=== PATIENT | male | born 1955 | race Caucasian/White ===

== ENCOUNTER 2022-06-30 02:34 | Observation (INO) | payer MEDICARE ==
[2022-06-30] MEDS ORDERED: DUONEB 0.5-3 MG/3 ml Neb IH ONE ×2 (02:42→02:52)
--- NOTE | 2022-06-30 02:51 | ERPHSYRPT ---
- History of Present Illness Time Seen by Provider: 06/30/22 02:46 Source: patient Exam Limitations: no limitations Physician History: Patient is a 66-year-old male with a history of COPD current smoker presents to our ED for evaluation of shortness of breath, hypoxia and respiratory distress.. Shortness of breath started this morning at approximately 1 AM. Upon EMS a rrival patient was wheezing. Patient was hypoxic. Patient received a DuoNeb neb and Solu-Medrol. Wheezing improved. Upon arrival to our ED patient O2 was 96% on facemask. No associated chest pain or shortness of breath. No nausea vomiting or diaphoresis. Symptoms are constant. Symptoms are moderate in intensity. No specific worsening improving factors. Patient normally does not require oxygen at home. Patient otherwise feels well. He voices no other complaints or concerns at this time. Portions of this note were created with voice recognition technology. There may be grammatical, spelling, punctuation or sound alike errors Timing/Duration: today Activities at Onset: none Severity of Dyspnea-Max: moderate Severity of Dyspnea-Current: mild Possible Cause: unknown cause Modifying Factors: Improves With: activity Associated Symptoms: No ankle swelling Allergies/Adverse Reactions: No Known Drug Allergies Allergy (Unverified 06/30/22 02:36) Home Medications: Ipratropium/Albuterol Sulfate [Combivent Respimat Common Canister] 1 puff IH DAILY 06/30/22 [History] Tiotropium Br/Olodaterol HCl [Stiolto Respimat Inhal Bryant] 4 gm IH DAILY [History] - Review of Systems Constitutional: No Symptoms, No Fever, No Chills Eyes: No Symptoms Ears, Nose, & Throat: No Symptoms Respiratory: No Symptoms, No Cough, No Dyspnea Cardiac: No Symptoms, No Chest Pain, No Edema, No Syncope Abdominal/Gastrointestinal: No Symptoms, No Abdominal Pain, No Nausea, No Vomiting, No Diarrhea Genitourinary Symptoms: No Symptoms, No Dysuria Musculoskeletal: No Symptoms, No Back Pain, No Neck Pain Skin: No Symptoms, No Rash Neurological: No Symptoms, No Dizziness, No Focal Weakness, No Sensory Changes Psychological: No Symptoms Endocrine: No Symptoms Hematologic/Lymphatic: No Symptoms Immunological/Allergic: No Symptoms All Other Systems: Reviewed and Negative - Nursing Vital Signs Nursing Vital Signs: Initial Vital Signs Temperature 97.7 F 06/30/22 02:39 Pulse Rate 102 H 06/30/22 02:39 Respiratory Rate 28 H 06/30/22 02:39 Blood Pressure 136/91 06/30/22 02:39 O2 Sat by Pulse Oximetry 99 06/30/22 02:39 Pain Scale Pain Intensity 0 - Physical Exam General Appearance: no apparent distress, alert Eye Exam: PERRL/EOMI, eyes nml inspection Ears, Nose, Throat Exam: hearing grossly normal, normal ENT inspection, normal pharynx Neck Exam: normal inspection, supple Respiratory Exam: diminished breath sounds, wheezing Cardiovascular/Chest Exam: normal heart sounds, regular rate/rhythm Abdominal/Gastrointestinal Exam: soft, No tenderness, No distention, No mass Extremity Exam: non-tender, normal range of motion, normal inspection, no calf tenderness, no pedal edema Neurologic Exam: alert, oriented x 3, cooperative, 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 Intact bony thorax.) Ordered Tests: Active Orders 24 hr Category Date Time Status Beautician Apprentice STAT Care 06/30/22 02:43 Active EKG-ER Only STAT Care 06/30/22 02:42 Active IV Insertion STAT Care 06/30/22 02:42 Active Pulse Oximetry (ED) STAT Care 06/30/22 02:42 Active CHEST 1 VIEW (PORTABLE) Stat Exams 06/30/22 02:43 Taken BLOOD CULTURE Stat Lab 06/30/22 03:09 Received CBC W DIFF Stat Lab 06/30/22 03:09 Completed CMP Stat Lab 06/30/22 03:09 Completed NT PRO BNPII Stat Lab 06/30/22 03:09 Completed UA W/RFX UR CULTURE Stat Lab 06/30/22 02:43 Ordered Respiratory Therapy Assessment DAILY RT 06/30/22 02:54 Active Medication Summary Discontinued Medications Generic Name Dose Route Start Last Admin Trade Name Freq PRN Reason Stop Dose Admin Albuterol/Ipratropium 3 ml 06/30/22 02:42 06/30/22 02:55 Ipratropium/Albuterol Sulfate 3 Ml Ampul.Neb IH 06/30/22 02:43 3 ml STAT ONE Administration Albuterol/Ipratropium Confirm 06/30/22 02:52 Ipratropium/Albuterol Sulfate 3 Ml Ampul.Neb Administered 06/30/22 02:53 Dose 3 ml IH .STK-MED ONE Ceftriaxone Sodium/Dextrose 2 g in 50 mls @ 100 mls/hr 06/30/22 03:14 06/30/22 04:09 Rocephin 2 Gm-D5w 50ml Bag IV 06/30/22 03:43 Infused STAT STA Infusion Azithromycin / Sodium Chloride 250 mls @ 125 mls/hr 06/30/22 03:14 IV 06/30/22 05:13 STAT ONE Ceftriaxone Sodium/Dextrose Confirm 06/30/22 03:28 Rocephin 2 Gm-D5w 50ml Bag Administered 06/30/22 03:29 Dose 2 g in 50 mls @ ud IV .STK-MED ONE Azithromycin 500 mg in 250 mls @ 250 mls/hr 06/30/22 03:49 06/30/22 04:07 Zithromax 500 Mg/ 250 Ml Nacl Premix IV 06/30/22 04:48 250 mls/hr STAT STA 250 mls/hr Administration Azithromycin Confirm 06/30/22 03:53 Zithromax 500 Mg/ 250 Ml Nacl Premix Administered 06/30/22 03:54 Dose 500 mg in 250 mls @ ud IV .STK-MED ONE Lab/Rad Data: Laboratory Result Diagrams 06/30/22 03:09 06/30/22 03:09 Laboratory Results 06/30/22 06/30/22 06/30/22 Range/Units 03:09 03:09 03:09 WBC (4.0-10.5) x10^3/uL RBC (4.1-5.6) x10^6/uL Hgb (12.5-18.0) g/dL Hct (42-50) % MCV (78-100) fL MCH (26-32) pg MCHC (32-36) g/dL RDW (11.5-14.0) % Plt Count (150-450) x10^3/uL MPV (7.5-11.0) fL Gran % (36.0-66.0) % Immature Gran % (Auto) (0.00-0.4) % Nucleat RBC Rel Count (0.00-0.1) % Eos # (Auto) (0-0.5) x10^3/uL Immature Gran # (Auto) (0.00-0.03) x10^3u/L Absolute Lymphs (auto) (1.0-4.6) x10^3/uL Absolute Monos (auto) (0.0-1.3) x10^3/uL Absolute Nucleated RBC (0.00-0.01) x10^3u/L Lymphocytes % (24.0-44.0) % Monocytes % (0.0-12.0) % Eosinophils % (0.00-5.0) % Basophils % (0.0-0.4) % Absolute Granulocytes (1.4-6.9) x10^3/uL Basophils # (0-0.4) x10^3/uL Sodium 142 (137-145) mmol/L Potassium 4.0 (3.5-5.1) mmol/L Chloride 103 (98-107) mmol/L Carbon Dioxide 33 H (22-30) mmol/L Anion Gap 9.7 (5-15) MEQ/L BUN 12 (9-20) mg/dL Creatinine 0.96 (0.66-1.25) mg/dL Estimated GFR > 60.0 ML/MIN Glucose 123 H (74-106) mg/dL Calcium 8.8 (8.4-10.2) mg/dL Total Bilirubin 0.60 (0.2-1.3) mg/dL AST 36 (17-59) U/L ALT 26 (0-50) U/L Alkaline Phosphatase 77 (38-126) U/L NT-Pro-B Natriuret Pep 139 (<300) pg/mL Serum Total Protein 6.5 (6.3-8.2) g/dL Albumin 3.9 (3.5-5.0) g/dL Influenza Type A Ag NEGATIVE (NEGATIVE) Influenza Type B Ag NEGATIVE (NEGATIVE) RSV (PCR) NEGATIVE (NEGATIVE) SARS-CoV-2 (PCR) NEGATIVE (NEGATIVE) 06/30/22 Range/Units 03:09 WBC 6.9 (4.0-10.5) x10^3/uL RBC 4.31 (4.1-5.6) x10^6/uL Hgb 13.6 (12.5-18.0) g/dL Hct 42.9 (42-50) % MCV 99.5 (78-100) fL MCH 31.6 (26-32) pg MCHC 31.7 L (32-36) g/dL RDW 12.3 (11.5-14.0) % Plt Count 216 (150-450) x10^3/uL MPV 9.5 (7.5-11.0) fL Gran % 52.3 (36.0-66.0) % Immature Gran % (Auto) 0.3 (0.00-0.4) % Nucleat RBC Rel Count 0.0 (0.00-0.1) % Eos # (Auto) 0.74 H (0-0.5) x10^3/uL Immature Gran # (Auto) 0.02 (0.00-0.03) x10^3u/L Absolute Lymphs (auto) 2.02 (1.0-4.6) x10^3/uL Absolute Monos (auto) 0.48 (0.0-1.3) x10^3/uL Absolute Nucleated RBC 0.00 (0.00-0.01) x10^3u/L Lymphocytes % 29.1 (24.0-44.0) % Monocytes % 6.9 (0.0-12.0) % Eosinophils % 10.7 H (0.00-5.0) % Basophils % 0.7 (0.0-0.4) % Absolute Granulocytes 3.63 (1.4-6.9) x10^3/uL Basophils # 0.05 (0-0.4) x10^3/uL Sodium (137-145) mmol/L Potassium (3.5-5.1) mmol/L Chloride (98-107) mmol/L Carbon Dioxide (22-30) mmol/L Anion Gap (5-15) MEQ/L BUN (9-20) mg/dL Creatinine (0.66-1.25) mg/dL Estimated GFR ML/MIN Glucose (74-106) mg/dL Calcium (8.4-10.2) mg/dL Total Bilirubin (0.2-1.3) mg/dL AST (17-59) U/L ALT (0-50) U/L Alkaline Phosphatase (38-126) U/L NT-Pro-B Natriuret Pep (<300) pg/mL Serum Total Protein (6.3-8.2) g/dL Albumin (3.5-5.0) g/dL Influenza Type A Ag (NEGATIVE) Influenza Type B Ag (NEGATIVE) RSV (PCR) (NEGATIVE) SARS-CoV-2 (PCR) (NEGATIVE) - Progress Progress: improved Air Movement: good Progress Note: Patient is a 66-year-old male with a history of COPD. Patient presents to our ED via EMS for evaluation of hypoxia and wheezing. Patient is experiencing a COPD exacerbation. Patient normally receives his care at the [facility]. However patient request to stay at [facility] for further evaluation and treatment. Patient received Solu-Medrol in route per EMS. Therefore he did not receive Fátima u-Medrol in our ED. Upon arrival to our ED patient was wearing a facemask. Oxygen was 96%. Patient was in mild respiratory distress. Patient significantly improved after administration of oxygen DuoNeb and steroids. Upon arrival to our ED patient had an EKG. EKG showed sinus tachycardia at a r ate of 100. Chest x-ray consistent with history of COPD. No infiltrate or consolidation observed. Blood cultures obtained. CBC essentially nonremarkable. CMP negative. COVID-negative. BNP negative. Urinalysis negative. Patient received azithromycin and Rocephin in our ED. An additional DuoNeb received. Patient downgraded from oxime mask to nasal cannula. Heart rate/tachycardia resolved. Respiratory distress resolved. However patient still wheezing and requires oxygen nasal cannula. Patient will require admission for further evaluation and treatment. Patient is a current smoker. Patient advised of the importance of smoking cessation. Patient understands states he is working on quitting. Patient's presenting problem is acute. Complexity of problem addressed is moderate, chronic illness with exacerbation. No critical care time. Complexity of data reviewed and analyzed is moderate. Test ordered. Test independently reviewed and analyzed by Dr. Weathers. Patient served as independent historian however upon arrival to our ED most of the information was obtained from EMS due to patient's severe shortness of breath. Management was discussed with hospitalist on-call. accepts admission to observation. Plan of care discussed with patient. He agrees to admission to [facility] Risk of complication and or risk morbidity/mortality of patient management is high. Patient requires hospitalization for further evaluation and treatment. Nebulizer treatment administered. Plan of care established via shared decision making model. Vital stable. Patient improving as expected. However additional observation and treatment required. Patient not a candidate for discharge at this time. Patient voices no other complaints or concerns at this time. Portions of this note were created with voice recognition technology. There may be grammatical, spelling, punctuation or sound alike errors 06/30/22 05:12 Blood Culture(s) Obtained: Yes Antibiotics given: Yes Discussed with DrArnav: Other (Jose Alfredo) Will see patient in: hospital (observation) Counseled pt/family regarding: lab results, diagnosis, rad results - Departure Departure Disposition: Observation Clinical Impression: COPD exacerbation, Hypoxia, Respiratory distress Condition: Stable Critical Care Time: No
[2022-06-30 03:12] LABS: Absolute Neutrophil Ct (ANC) 3.63 x10^3/uL (1.4-6.9); BASOPHIL % 0.7 % (0.0-0.4); Basophil (Absolute #) 0.05 x10^3/uL (0-0.4); Eosinophil % 10.7 % (0.00-5.0); Eosinophil (Absolute #) 0.74 x10^3/uL (0-0.5); Hematocrit 42.9 % (42-50); Hemoglobin 13.6 g/dL (12.5-18.0); IMMATURE GRAN # 0.02 x10^3u/L (0.00-0.03); IMMATURE GRAN % 0.3 % (0.00-0.4); Lymphocyte (Absolute #) 2.02 x10^3/uL (1.0-4.6); Lymphocytes % 29.1 % (24.0-44.0); Mean Cell Volume 99.5 fL (78-100); Mean Corpuscular Hemoglobin 31.6 pg (26-32); Mean Corpuscular Hgb Concent. 31.7 g/dL (32-36); Mean Platelet Volume 9.5 fL (7.5-11.0); Monocyte (Absolute #) 0.48 x10^3/uL (0.0-1.3); Monocytes % 6.9 % (0.0-12.0); Neutrophil % 52.3 % (36.0-66.0); Platelet Count 216 x10^3/uL (150-450); Red Blood Count 4.31 x10^6/uL (4.1-5.6); Red Cell Distribution Width 12.3 % (11.5-14.0); White Blood Count 6.9 x10^3/uL (4.0-10.5)
[2022-06-30] MEDS ORDERED: ROCEPHIN 2 Gm-D5w 50ML BAG** 2 G/50 ML IVPB IV STA (03:14)
[2022-06-30] MEDS ORDERED: ZITHROMAX IV*** 0 MG in Sodium Chloride 0.9% 250 ML 250 ML IV ONE (03:14)
[2022-06-30 03:25] LABS: ALBUMIN 3.9 g/dL (3.5-5.0); ALKALINE PHOSPHATASE 77 U/L (38-126); ANION GAP 9.7 MEQ/L (5-15); BLOOD UREA NITROGEN 12 mg/dL (9-20); CHLORIDE 103 mmol/L (98-107); Calcium 8.8 mg/dL (8.4-10.2); Carbon Dioxide 33 mmol/L (22-30); Creatinine 1 0.96 mg/dL (0.66-1.25); EST GLOMERULAR FILTRATION RATE > 60.0 ML/MIN; Glucose 123 mg/dL (74-106); SGOT/AST 36 U/L (17-59); SGPT/ALT 26 U/L (0-50); SODIUM 142 mmol/L (137-145); Total Protein 6.5 g/dL (6.3-8.2)
[2022-06-30] MEDS ORDERED: ROCEPHIN 2 Gm-D5w 50ML BAG** 2 G/50 ML IVPB IV ONE (03:28)
[2022-06-30 03:49] LABS: INFLUENZA A NEGATIVE (NEGATIVE); INFLUENZA B NEGATIVE (NEGATIVE); RESPIRATORY SYNCTIAL VIRUS NEGATIVE (NEGATIVE); SARS-CoV-2 Xpert Express NEGATIVE (NEGATIVE)
[2022-06-30] MEDS ORDERED: Zithromax 500 MG/ 250 ML NaCl Premix 500 MG/250 ML IVPB IV STA (03:49)
[2022-06-30] MEDS ORDERED: Zithromax 500 MG/ 250 ML NaCl Premix 500 MG/250 ML IVPB IV ONE (03:53)
[2022-06-30 05:42] LABS: Appearance CLEAR (CLEAR); Bacteria None Seen /HPF (None Seen); Bilirubin NEGATIVE (NEGATIVE); Epithelial Cells None Seen /HPF (None Seen); Glucose NEGATIVE (NEGATIVE); Hyaline Casts NONE SEEN /LPF (0-2); Ketones NEGATIVE (NEGATIVE); Nitrite NEGATIVE (NEGATIVE); Protein,Urine Dip NEGATIVE (Negative); RBC 0-2 /HPF (0-5); RBC NEGATIVE Ery/ul (0-5); Specific Gravity 1.015 (1.005-1.025); Urobilinogen 0.2 mg/dL (0-1); WBC 0-2 /HPF (0-5)
[2022-06-30 05:43] LABS: ADD URINE CULTURE? NO (NO)
[2022-06-30] MEDS ORDERED: PATEINT INSURANCE PROVIDED MED PO PRN (05:58)
[2022-06-30] MEDS ORDERED: PATIENT OWN MEDICATION PO PRN (07:11)
[2022-06-30] MEDS: DUONEB 0.5-3 MG/3 ml Neb IH SCH ×2 (07:20→13:39)
--- NOTE | 2022-06-30 07:52 | PCM.SSS ---
History of Present Illness - Chief Complaint Chief Complaint: COPD EXACERBATION History of Present Illness: is a 66 year old male admitted with cough, shortness of breath and wheezing consistent with copd exacerbation. He follows with Dr Bryant at [facility], does not have a nebulizer machine at home. feels much better today after getting nebs overnight, sats are stable on room air. - Review of Systems Constitutional: No Fever, No Chills Respiratory: Cough, Short Of Breath, Wheezing Cardiac: No Chest Pain, No Edema, No Syncope Abdominal/Gastrointestinal: No Abdominal Pain, No Nausea, No Vomiting, No Diarrhea Genitourinary Symptoms: No Dysuria Skin: No Rash All Other Systems: Reviewed and Negative Medications & Allergies Home Medications: Home Medication List Albuterol/Ipratropium 3ml Neb* [DUONEB 0.5-3 MG/3 ml Neb] 3 ml IH Q6HPRN PRN #100 units 06/30/22 [Rx] Doxycycline Monohydrate [Monodox] 100 mg PO BID #14 cap 06/30/22 [Rx] Ipratropium/Albuterol Sulfate [Combivent Respimat Common Canister] 1 puff IH DAILY 06/30/22 [History Confirmed 06/30/22] Nebulizer and Compressor [[place] Choice Nebulizer] 1 each UD #1 unit 06/30/22 [Rx] Prednisone 20 mg [Deltasone 20 mg] 20 mg PO UD #18 tablet 06/30/22 [Rx] Tiotropium Br/Olodaterol HCl [Stiolto Respimat Inhal [place]] 4 gm IH DAILY 06/30/22 [History Confirmed 06/30/22] Allergies/Adverse Reactions: Allergies Allergy/AdvReac Type Severity Reaction Status Date / Time No Known Drug Allergies Allergy Unverified 06/30/22 02:36 - Past Medical History Past Medical History: Yes Neurological History: No Pertinent History ENT History: No Pertinent History Cardiac History: No Pertinent History Respiratory History: COPD, Emphysema Endocrine Medical History: No Pertinent History Musculoskelatal History: No Pertinent History GI Medical History: No Pertinent History History: No Pertinent History Pyscho-Social History: No Pertinent History Male Reproductive Disorders: No Pertinent History - Past Surgical History Past Surgical History: Yes Neuro Surgical History: No Pertinent History Cardiac History: No Pertinent History Respiratory Surgery: No Pertinent History GI Surgical History: No Pertinent History Genitourinary Surgical Hx: No Pertinent History Musculskeletal Surgical Hx: No Pertinent History Male Surgical History: No Pertinent History Other Surgical History: pelvic hernia surgery at 1yo - Social History Smoking Status: Current every day smoker How long have you smoked: 50yrs Exposure to second hand smoke: No Alcohol: None Drug Use: none - Physical Exam Vital Signs: Vital Signs - 24 hr Temp Pulse Resp BP Pulse Ox 06/30/22 07:34 98.2 F 80 16 129/73 92 L 06/30/22 07:21 84 20 91 L 06/30/22 05:31 97.3 F 87 18 157/88 98 06/30/22 05:21 96 06/30/22 05:02 86 21 139/86 96 06/30/22 04:07 85 19 112/93 95 06/30/22 03:39 87 21 136/84 95 06/30/22 03:10 96 06/30/22 02:55 94 H 24 97 06/30/22 02:39 97.7 F 102 H 28 H 136/91 99 General Appearance: no apparent distress Neurologic Exam: alert, oriented x 3 Respiratory Exam: prolonged expirations, wheezing (minimal) Cardiovascular Exam: regular rate/rhythm, normal heart sounds, normal peripheral pulses Gastrointestinal/Abdomen Exam: soft, normal bowel sounds, No tenderness, No mass Extremity Exam: normal inspection, normal range of motion, pelvis stable Skin Exam: normal color, warm, dry, No rash Results - Labs Lab/Micro Results: Lab Results-Last 24 Hours 06/30/22 06/30/22 06/30/22 Range/Units 02:43 03:09 03:09 WBC 6.9 (4.0-10.5) x10^3/uL RBC 4.31 (4.1-5.6) x10^6/uL Hgb 13.6 (12.5-18.0) g/dL Hct 42.9 (42-50) % MCV 99.5 (78-100) fL MCH 31.6 (26-32) pg MCHC 31.7 L (32-36) g/dL RDW 12.3 (11.5-14.0) % Plt Count 216 (150-450) x10^3/uL MPV 9.5 (7.5-11.0) fL Gran % 52.3 (36.0-66.0) % Immature Gran % (Auto) 0.3 (0.00-0.4) % Nucleat RBC Rel Count 0.0 (0.00-0.1) % Eos # (Auto) 0.74 H (0-0.5) x10^3/uL Immature Gran # (Auto) 0.02 (0.00-0.03) x10^3u/L Absolute Lymphs (auto) 2.02 (1.0-4.6) x10^3/uL Absolute Monos (auto) 0.48 (0.0-1.3) x10^3/uL Absolute Nucleated RBC 0.00 (0.00-0.01) x10^3u/L Lymphocytes % 29.1 (24.0-44.0) % Monocytes % 6.9 (0.0-12.0) % Eosinophils % 10.7 H (0.00-5.0) % Basophils % 0.7 (0.0-0.4) % Absolute Granulocytes 3.63 (1.4-6.9) x10^3/uL Basophils # 0.05 (0-0.4) x10^3/uL Sodium 142 (137-145) mmol/L Potassium 4.0 (3.5-5.1) mmol/L Chloride 103 (98-107) mmol/L Carbon Dioxide 33 H (22-30) mmol/L Anion Gap 9.7 (5-15) MEQ/L BUN 12 (9-20) mg/dL Creatinine 0.96 (0.66-1.25) mg/dL Estimated GFR > 60.0 ML/MIN Glucose 123 H (74-106) mg/dL Calcium 8.8 (8.4-10.2) mg/dL Total Bilirubin 0.60 (0.2-1.3) mg/dL AST 36 (17-59) U/L ALT 26 (0-50) U/L Alkaline Phosphatase 77 (38-126) U/L NT-Pro-B Natriuret Pep (<300) pg/mL Serum Total Protein 6.5 (6.3-8.2) g/dL Albumin 3.9 (3.5-5.0) g/dL Urine Color YELLOW (YELLOW) Urine Appearance CLEAR (CLEAR) Urine pH 6.0 (5-6) Ur Specific [place] 1.015 (1.005-1.025) POC Urine Protein Conf NEGATIVE (Negative) Urine Ketones NEGATIVE (NEGATIVE) Urine Nitrite NEGATIVE (NEGATIVE) Urine Bilirubin NEGATIVE (NEGATIVE) Urine Urobilinogen 0.2 (0-1) mg/dL Urine Leukocytes NEGATIVE (NEGATIVE) U Hyaline Cast (Auto) NONE SEEN (0-2) /LPF Urine RBC NEGATIVE (0-5) Chapo/ul Urine Microscopic RBC 0-2 (0-5) /HPF Urine Microscopic WBC 0-2 (0-5) /HPF Ur Epithelial Cells None Seen (None Seen) /HPF Urine Bacteria None Seen (None Seen) /HPF Urine Culture Reflexed NO (NO) Urine Glucose NEGATIVE (NEGATIVE) mg/dL Influenza Type A Ag (NEGATIVE) Influenza Type B Ag (NEGATIVE) RSV (PCR) (NEGATIVE) SARS-CoV-2 (PCR) (NEGATIVE) 06/30/22 06/30/22 Range/Units 03:09 03:09 WBC (4.0-10.5) x10^3/uL RBC (4.1-5.6) x10^6/uL Hgb (12.5-18.0) g/dL Hct (42-50) % MCV (78-100) fL MCH (26-32) pg MCHC (32-36) g/dL RDW (11.5-14.0) % Plt Count (150-450) x10^3/uL MPV (7.5-11.0) fL Gran % (36.0-66.0) % Immature Gran % (Auto) (0.00-0.4) % Nucleat RBC Rel Count (0.00-0.1) % Eos # (Auto) (0-0.5) x10^3/uL Immature Gran # (Auto) (0.00-0.03) x10^3u/L Absolute Lymphs (auto) (1.0-4.6) x10^3/uL Absolute Monos (auto) (0.0-1.3) x10^3/uL Absolute Nucleated RBC (0.00-0.01) x10^3u/L Lymphocytes % (24.0-44.0) % Monocytes % (0.0-12.0) % Eosinophils % (0.00-5.0) % Basophils % (0.0-0.4) % Absolute Granulocytes (1.4-6.9) x10^3/uL Basophils # (0-0.4) x10^3/uL Sodium (137-145) mmol/L Potassium (3.5-5.1) mmol/L Chloride (98-107) mmol/L Carbon Dioxide (22-30) mmol/L Anion Gap (5-15) MEQ/L BUN (9-20) mg/dL Creatinine (0.66-1.25) mg/dL Estimated GFR ML/MIN Glucose (74-106) mg/dL Calcium (8.4-10.2) mg/dL Total Bilirubin (0.2-1.3) mg/dL AST (17-59) U/L ALT (0-50) U/L Alkaline Phosphatase (38-126) U/L NT-Pro-B Natriuret Pep 139 (<300) pg/mL Serum Total Protein (6.3-8.2) g/dL Albumin (3.5-5.0) g/dL Urine Color (YELLOW) Urine Appearance (CLEAR) Urine pH (5-6) Ur Specific [place] (1.005-1.025) POC Urine Protein Conf (Negative) Urine Ketones (NEGATIVE) Urine Nitrite (NEGATIVE) Urine Bilirubin (NEGATIVE) Urine Urobilinogen (0-1) mg/dL Urine Leukocytes (NEGATIVE) U Hyaline Cast (Auto) (0-2) /LPF Urine RBC (0-5) Chapo/ul Urine Microscopic RBC (0-5) /HPF Urine Microscopic WBC (0-5) /HPF Ur Epithelial Cells (None Seen) /HPF Urine Bacteria (None Seen) /HPF Urine Culture Reflexed (NO) Urine Glucose (NEGATIVE) mg/dL Influenza Type A Ag NEGATIVE (NEGATIVE) Influenza Type B Ag NEGATIVE (NEGATIVE) RSV (PCR) NEGATIVE (NEGATIVE) SARS-CoV-2 (PCR) NEGATIVE (NEGATIVE) - Radiology Impressions Radiology Exams & Impressions: Radiology Procedures Category Date Time Status CHEST 1 VIEW (PORTABLE) Stat Exams 06/30/22 02:43 Taken - Other Procedures and Tests Respiratory Therapy 06/30/22 02:54 Respiratory Therapy Assessment DAILY 06/30/22 05:56 Oxygen Nasal Cannula 2 lpm 06/30/22 05:59 Respiratory MDI UD 06/30/22 06:00 Respiratory MDI UD Assessment/Plan (1) COPD exacerbation Current Visit: Yes Status: Acute Assessment & Plan: home on po abx and prednisone, will get nebulizer machine Code(s): J44.1 - CHRONIC OBSTRUCTIVE PULMONARY DISEASE W (ACUTE) EXACERBATION Hospital Summary - Vitals & Intake/Output Vital Signs: Vital Signs Temperature 98.2 F 06/30/22 07:34 Pulse Rate 80 06/30/22 07:34 Respiratory Rate 16 06/30/22 07:34 Blood Pressure 129/73 06/30/22 07:34 O2 Sat by Pulse Oximetry 92 L 06/30/22 07:34 Intake & Output: Intake & Output 06/27/22 06/28/22 06/29/22 06/30/22 11:59 11:59 11:59 11:59 Weight 58.3 kg - Lab Result Diagrams: 06/30/22 03:09 06/30/22 03:09 Lab Results-Last 24 Hrs: Lab Results-Last 24 Hours 06/30/22 06/30/22 06/30/22 Range/Units 02:43 03:09 03:09 WBC 6.9 (4.0-10.5) x10^3/uL RBC 4.31 (4.1-5.6) x10^6/uL Hgb 13.6 (12.5-18.0) g/dL Hct 42.9 (42-50) % MCV 99.5 (78-100) fL MCH 31.6 (26-32) pg MCHC 31.7 L (32-36) g/dL RDW 12.3 (11.5-14.0) % Plt Count 216 (150-450) x10^3/uL MPV 9.5 (7.5-11.0) fL Gran % 52.3 (36.0-66.0) % Immature Gran % (Auto) 0.3 (0.00-0.4) % Nucleat RBC Rel Count 0.0 (0.00-0.1) % Eos # (Auto) 0.74 H (0-0.5) x10^3/uL Immature Gran # (Auto) 0.02 (0.00-0.03) x10^3u/L Absolute Lymphs (auto) 2.02 (1.0-4.6) x10^3/uL Absolute Monos (auto) 0.48 (0.0-1.3) x10^3/uL Absolute Nucleated RBC 0.00 (0.00-0.01) x10^3u/L Lymphocytes % 29.1 (24.0-44.0) % Monocytes % 6.9 (0.0-12.0) % Eosinophils % 10.7 H (0.00-5.0) % Basophils % 0.7 (0.0-0.4) % Absolute Granulocytes 3.63 (1.4-6.9) x10^3/uL Basophils # 0.05 (0-0.4) x10^3/uL Sodium 142 (137-145) mmol/L Potassium 4.0 (3.5-5.1) mmol/L Chloride 103 (98-107) mmol/L Carbon Dioxide 33 H (22-30) mmol/L Anion Gap 9.7 (5-15) MEQ/L BUN 12 (9-20) mg/dL Creatinine 0.96 (0.66-1.25) mg/dL Estimated GFR > 60.0 ML/MIN Glucose 123 H (74-106) mg/dL Calcium 8.8 (8.4-10.2) mg/dL Total Bilirubin 0.60 (0.2-1.3) mg/dL AST 36 (17-59) U/L ALT 26 (0-50) U/L Alkaline Phosphatase 77 (38-126) U/L NT-Pro-B Natriuret Pep (<300) pg/mL Serum Total Protein 6.5 (6.3-8.2) g/dL Albumin 3.9 (3.5-5.0) g/dL Urine Color YELLOW (YELLOW) Urine Appearance CLEAR (CLEAR) Urine pH 6.0 (5-6) Ur Specific [place] 1.015 (1.005-1.025) POC Urine Protein Conf NEGATIVE (Negative) Urine Ketones NEGATIVE (NEGATIVE) Urine Nitrite NEGATIVE (NEGATIVE) Urine Bilirubin NEGATIVE (NEGATIVE) Urine Urobilinogen 0.2 (0-1) mg/dL Urine Leukocytes NEGATIVE (NEGATIVE) U Hyaline Cast (Auto) NONE SEEN (0-2) /LPF Urine RBC NEGATIVE (0-5) Chapo/ul Urine Microscopic RBC 0-2 (0-5) /HPF Urine Microscopic WBC 0-2 (0-5) /HPF Ur Epithelial Cells None Seen (None Seen) /HPF Urine Bacteria None Seen (None Seen) /HPF Urine Culture Reflexed NO (NO) Urine Glucose NEGATIVE (NEGATIVE) mg/dL Influenza Type A Ag (NEGATIVE) Influenza Type B Ag (NEGATIVE) RSV (PCR) (NEGATIVE) SARS-CoV-2 (PCR) (NEGATIVE) 06/30/22 06/30/22 Range/Units 03:09 03:09 WBC (4.0-10.5) x10^3/uL RBC (4.1-5.6) x10^6/uL Hgb (12.5-18.0) g/dL Hct (42-50) % MCV (78-100) fL MCH (26-32) pg MCHC (32-36) g/dL RDW (11.5-14.0) % Plt Count (150-450) x10^3/uL MPV (7.5-11.0) fL Gran % (36.0-66.0) % Immature Gran % (Auto) (0.00-0.4) % Nucleat RBC Rel Count (0.00-0.1) % Eos # (Auto) (0-0.5) x10^3/uL Immature Gran # (Auto) (0.00-0.03) x10^3u/L Absolute Lymphs (auto) (1.0-4.6) x10^3/uL Absolute Monos (auto) (0.0-1.3) x10^3/uL Absolute Nucleated RBC (0.00-0.01) x10^3u/L Lymphocytes % (24.0-44.0) % Monocytes % (0.0-12.0) % Eosinophils % (0.00-5.0) % Basophils % (0.0-0.4) % Absolute Granulocytes (1.4-6.9) x10^3/uL Basophils # (0-0.4) x10^3/uL Sodium (137-145) mmol/L Potassium (3.5-5.1) mmol/L Chloride (98-107) mmol/L Carbon Dioxide (22-30) mmol/L Anion Gap (5-15) MEQ/L BUN (9-20) mg/dL Creatinine (0.66-1.25) mg/dL Estimated GFR ML/MIN Glucose (74-106) mg/dL Calcium (8.4-10.2) mg/dL Total Bilirubin (0.2-1.3) mg/dL AST (17-59) U/L ALT (0-50) U/L Alkaline Phosphatase (38-126) U/L NT-Pro-B Natriuret Pep 139 (<300) pg/mL Serum Total Protein (6.3-8.2) g/dL Albumin (3.5-5.0) g/dL Urine Color (YELLOW) Urine Appearance (CLEAR) Urine pH (5-6) Ur Specific [place] (1.005-1.025) POC Urine Protein Conf (Negative) Urine Ketones (NEGATIVE) Urine Nitrite (NEGATIVE) Urine Bilirubin (NEGATIVE) Urine Urobilinogen (0-1) mg/dL Urine Leukocytes (NEGATIVE) U Hyaline Cast (Auto) (0-2) /LPF Urine RBC (0-5) Chapo/ul Urine Microscopic RBC (0-5) /HPF Urine Microscopic WBC (0-5) /HPF Ur Epithelial Cells (None Seen) /HPF Urine Bacteria (None Seen) /HPF Urine Culture Reflexed (NO) Urine Glucose (NEGATIVE) mg/dL Influenza Type A Ag NEGATIVE (NEGATIVE) Influenza Type B Ag NEGATIVE (NEGATIVE) RSV (PCR) NEGATIVE (NEGATIVE) SARS-CoV-2 (PCR) NEGATIVE (NEGATIVE) - Radiology Exams Ordered Rad Exams-Entire Visit: Radiology Procedures Category Date Time Status CHEST 1 VIEW (PORTABLE) Stat Exams 06/30/22 02:43 Taken - Procedures and Test Procedures and Tests throughout Hospitalization: Therapy Orders & Screens 06/30/22 02:54 Respiratory Therapy Assessment DAILY Comment: 06/30/22 05:56 Oxygen Nasal Cannula 2 lpm Comment: 06/30/22 05:58 Smoking Cessation Education ONCE Comment: Diagnosis: COPD EXACERBATION Smoking Status: Current every day smoker How long have you smoked: 50yrs Do you dip or chew tobacco: No 06/30/22 05:59 Respiratory MDI UD Comment: PT OWN STILOTO Diagnosis: COPD EXACERBATION 06/30/22 06:00 Respiratory MDI UD Comment: PT OWN COMBIVENT MDI Diagnosis: COPD EXACERBATION - Discharge Disposition: Home, Self-Care Condition: Stable Prescriptions: New Albuterol/Ipratropium 3ml Neb* [DUONEB 0.5-3 MG/3 ml Neb] 3 ml IH Q6HPRN PRN #100 units PRN Reason: wheezing Prednisone 20 mg [Deltasone 20 mg] 20 mg PO UD #18 tablet Doxycycline Monohydrate [Monodox] 100 mg PO BID #14 cap Nebulizer and Compressor [[place] Choice Nebulizer] 1 each UD #1 unit Continue Ipratropium/Albuterol Sulfate [Combivent Respimat Common Canister] 1 puff IH DAILY Tiotropium Br/Olodaterol HCl [Stiolto Respimat Inhal [place]] 4 gm IH DAILY Follow up with: [facility] [Primary Care Provider] -
--- NOTE | 2022-06-30 09:03 | XRAY ---
Indication: Short of breath. Comparison: None Portable chest demonstrates COPD. 9 mm right mid perihilar and 4 mm lateral right base nodularities. No focal infiltrate, consolidation, or large effusion. Heart images don't structures within normal limits. Bony thorax intact with osteopenia and mild degenerative changes. Impression: 1. Right mid and right base nodularities. Outside comparison studies recommended if available. If not, CT chest may yield further information. 2. COPD. 3. Negative for acute pneumonic process or CHF.
[2022-06-30] MEDS ORDERED: PATIENT OWN MEDICATION IH PRN (09:45)
[2022-06-30] MEDS ORDERED: PATIENT OWN MEDICATION IH SCH ×3 (10:00→18:00)
--- NOTE | 2022-06-30 10:30 | PCM.HP ---
History of Present Illness - Chief Complaint Chief Complaint: COPD EXACERBATION Date: 06/29/22 History of Present Illness: is a 66 year old male. With history of COPD. He does not use any home Oxygen. He reported having acute onset of difficulty breathing that did not resole with inhaler therapy which led him to dial 911 for help. He received nebulizer treatment in the [facility] which helped dramatically. He has been in the [facility] twice before for COPD exacerbations. He has taken steroids in the past. He is not keen on taking any steroids today. He feels back to normal by the time I saw him. No sick contacts. No fevers. No productive cough. Continues to smoke, - has 50py history - but is going to quit now. Medications & Allergies Home Medications: Home Medication List Albuterol/Ipratropium 3ml Neb* [DUONEB 0.5-3 MG/3 ml Neb] 1 neb IH Q6H PRN PRN 30 Days 06/30/22 [Rx] Doxycycline Monohydrate [Monodox] 100 mg PO BID #14 cap 06/30/22 [Rx] Ipratropium/Albuterol Sulfate [Combivent Respimat Common Canister] 1 puff IH DAILY 06/30/22 [History Confirmed 06/30/22] Prednisone 20 mg [Deltasone 20 mg] 20 mg PO UD #18 tablet 06/30/22 [Rx] Tiotropium Br/Olodaterol HCl [Stiolto Respimat Inhal [place]] 4 gm IH DAILY 06/30/22 [History Confirmed 06/30/22] Allergies/Adverse Reactions: Allergies Allergy/AdvReac Type Severity Reaction Status Date / Time No Known Drug Allergies Allergy Unverified 06/30/22 02:36 - Past Medical History Past Medical History: Yes Neurological History: No Pertinent History ENT History: No Pertinent History Cardiac History: No Pertinent History Respiratory History: COPD, Emphysema Endocrine Medical History: No Pertinent History Musculoskelatal History: No Pertinent History GI Medical History: No Pertinent History History: No Pertinent History Pyscho-Social History: No Pertinent History Male Reproductive Disorders: No Pertinent History - Past Surgical History Past Surgical History: Yes Neuro Surgical History: No Pertinent History Cardiac History: No Pertinent History Respiratory Surgery: No Pertinent History GI Surgical History: No Pertinent History Genitourinary Surgical Hx: No Pertinent History Musculskeletal Surgical Hx: No Pertinent History Male Surgical History: No Pertinent History Other Surgical History: pelvic hernia surgery at 1yo - Social History Smoking Status: Current every day smoker How long have you smoked: 50yrs Exposure to second hand smoke: No Alcohol: None Drug Use: none - Physical Exam Vital Signs: Vital Signs - 24 hr Temp Pulse Resp BP Pulse Ox 06/30/22 07:34 98.2 F 80 16 129/73 92 L 06/30/22 07:21 84 20 91 L 06/30/22 05:31 97.3 F 87 18 157/88 98 06/30/22 05:21 96 06/30/22 05:02 86 21 139/86 96 06/30/22 04:07 85 19 112/93 95 06/30/22 03:39 87 21 136/84 95 06/30/22 03:10 96 06/30/22 02:55 94 H 24 97 06/30/22 02:39 97.7 F 102 H 28 H 136/91 99 General Appearance: no apparent distress Neurologic Exam: alert, oriented x 3 (ornery) Eye Exam: PERRL/EOMI Neck Exam: normal inspection Respiratory Exam: wheezing (Isolated left sided expiratory wheeze, otherwise clear and not tachypnea or accessory muscle usage) Cardiovascular Exam: regular rate/rhythm, normal heart sounds Results - Labs Lab/Micro Results: Lab Results-Last 24 Hours 06/30/22 06/30/22 06/30/22 Range/Units 02:43 03:09 03:09 WBC 6.9 (4.0-10.5) x10^3/uL RBC 4.31 (4.1-5.6) x10^6/uL Hgb 13.6 (12.5-18.0) g/dL Hct 42.9 (42-50) % MCV 99.5 (78-100) fL MCH 31.6 (26-32) pg MCHC 31.7 L (32-36) g/dL RDW 12.3 (11.5-14.0) % Plt Count 216 (150-450) x10^3/uL MPV 9.5 (7.5-11.0) fL Gran % 52.3 (36.0-66.0) % Immature Gran % (Auto) 0.3 (0.00-0.4) % Nucleat RBC Rel Count 0.0 (0.00-0.1) % Eos # (Auto) 0.74 H (0-0.5) x10^3/uL Immature Gran # (Auto) 0.02 (0.00-0.03) x10^3u/L Absolute Lymphs (auto) 2.02 (1.0-4.6) x10^3/uL Absolute Monos (auto) 0.48 (0.0-1.3) x10^3/uL Absolute Nucleated RBC 0.00 (0.00-0.01) x10^3u/L Lymphocytes % 29.1 (24.0-44.0) % Monocytes % 6.9 (0.0-12.0) % Eosinophils % 10.7 H (0.00-5.0) % Basophils % 0.7 (0.0-0.4) % Absolute Granulocytes 3.63 (1.4-6.9) x10^3/uL Basophils # 0.05 (0-0.4) x10^3/uL Sodium 142 (137-145) mmol/L Potassium 4.0 (3.5-5.1) mmol/L Chloride 103 (98-107) mmol/L Carbon Dioxide 33 H (22-30) mmol/L Anion Gap 9.7 (5-15) MEQ/L BUN 12 (9-20) mg/dL Creatinine 0.96 (0.66-1.25) mg/dL Estimated GFR > 60.0 ML/MIN Glucose 123 H (74-106) mg/dL Calcium 8.8 (8.4-10.2) mg/dL Total Bilirubin 0.60 (0.2-1.3) mg/dL AST 36 (17-59) U/L ALT 26 (0-50) U/L Alkaline Phosphatase 77 (38-126) U/L NT-Pro-B Natriuret Pep (<300) pg/mL Serum Total Protein 6.5 (6.3-8.2) g/dL Albumin 3.9 (3.5-5.0) g/dL Urine Color YELLOW (YELLOW) Urine Appearance CLEAR (CLEAR) Urine pH 6.0 (5-6) Ur Specific [place] 1.015 (1.005-1.025) POC Urine Protein Conf NEGATIVE (Negative) Urine Ketones NEGATIVE (NEGATIVE) Urine Nitrite NEGATIVE (NEGATIVE) Urine Bilirubin NEGATIVE (NEGATIVE) Urine Urobilinogen 0.2 (0-1) mg/dL Urine Leukocytes NEGATIVE (NEGATIVE) U Hyaline Cast (Auto) NONE SEEN (0-2) /LPF Urine RBC NEGATIVE (0-5) Chapo/ul Urine Microscopic RBC 0-2 (0-5) /HPF Urine Microscopic WBC 0-2 (0-5) /HPF Ur Epithelial Cells None Seen (None Seen) /HPF Urine Bacteria None Seen (None Seen) /HPF Urine Culture Reflexed NO (NO) Urine Glucose NEGATIVE (NEGATIVE) mg/dL Influenza Type A Ag (NEGATIVE) Influenza Type B Ag (NEGATIVE) RSV (PCR) (NEGATIVE) SARS-CoV-2 (PCR) (NEGATIVE) 06/30/22 06/30/22 Range/Units 03:09 03:09 WBC (4.0-10.5) x10^3/uL RBC (4.1-5.6) x10^6/uL Hgb (12.5-18.0) g/dL Hct (42-50) % MCV (78-100) fL MCH (26-32) pg MCHC (32-36) g/dL RDW (11.5-14.0) % Plt Count (150-450) x10^3/uL MPV (7.5-11.0) fL Gran % (36.0-66.0) % Immature Gran % (Auto) (0.00-0.4) % Nucleat RBC Rel Count (0.00-0.1) % Eos # (Auto) (0-0.5) x10^3/uL Immature Gran # (Auto) (0.00-0.03) x10^3u/L Absolute Lymphs (auto) (1.0-4.6) x10^3/uL Absolute Monos (auto) (0.0-1.3) x10^3/uL Absolute Nucleated RBC (0.00-0.01) x10^3u/L Lymphocytes % (24.0-44.0) % Monocytes % (0.0-12.0) % Eosinophils % (0.00-5.0) % Basophils % (0.0-0.4) % Absolute Granulocytes (1.4-6.9) x10^3/uL Basophils # (0-0.4) x10^3/uL Sodium (137-145) mmol/L Potassium (3.5-5.1) mmol/L Chloride (98-107) mmol/L Carbon Dioxide (22-30) mmol/L Anion Gap (5-15) MEQ/L BUN (9-20) mg/dL Creatinine (0.66-1.25) mg/dL Estimated GFR ML/MIN Glucose (74-106) mg/dL Calcium (8.4-10.2) mg/dL Total Bilirubin (0.2-1.3) mg/dL AST (17-59) U/L ALT (0-50) U/L Alkaline Phosphatase (38-126) U/L NT-Pro-B Natriuret Pep 139 (<300) pg/mL Serum Total Protein (6.3-8.2) g/dL Albumin (3.5-5.0) g/dL Urine Color (YELLOW) Urine Appearance (CLEAR) Urine pH (5-6) Ur Specific [place] (1.005-1.025) POC Urine Protein Conf (Negative) Urine Ketones (NEGATIVE) Urine Nitrite (NEGATIVE) Urine Bilirubin (NEGATIVE) Urine Urobilinogen (0-1) mg/dL Urine Leukocytes (NEGATIVE) U Hyaline Cast (Auto) (0-2) /LPF Urine RBC (0-5) [place] Urine Microscopic RBC (0-5) /HPF Urine Microscopic WBC (0-5) /HPF Ur Epithelial Cells (None Seen) /HPF Urine Bacteria (None Seen) /HPF Urine Culture Reflexed (NO) Urine Glucose (NEGATIVE) mg/dL Influenza Type A Ag NEGATIVE (NEGATIVE) Influenza Type B Ag NEGATIVE (NEGATIVE) RSV (PCR) NEGATIVE (NEGATIVE) SARS-CoV-2 (PCR) NEGATIVE (NEGATIVE) - Radiology Impressions Radiology Exams & Impressions: Radiology Procedures Category Date Time Status CHEST 1 VIEW (PORTABLE) Stat Exams 06/30/22 02:43 Completed - Other Procedures and Tests Respiratory Therapy 06/30/22 02:54 Respiratory Therapy Assessment DAILY 06/30/22 05:56 Oxygen Nasal Cannula 2 lpm 06/30/22 05:59 Respiratory MDI UD 06/30/22 06:00 Respiratory MDI UD Assessment/Plan (1) COPD exacerbation Current Visit: Yes Status: Chronic Assessment & Plan: Mild COPD exacerbation, no known trigger other than patient continues to smoke - last cigarette hours before exacerbation. Will treat with z pack 5 day course. Saturating 94% on RA. Do not feel strongly abot giving steroids. Code(s): J44.1 - CHRONIC OBSTRUCTIVE PULMONARY DISEASE W (ACUTE) EXACERBATION Telemedicine Encounter - Telemedicine Encounter Telemedicine Encounter: The entirety of this encounter was performed via Telemedicine"
[2022-06-30 11:53] VITALS: BP 140/86; O2SAT 93
[2022-06-30 13:44] VITALS: PULSE 105
[2022-06-30] MEDS ORDERED: PATEINT INSURANCE PROVIDED MED PO SCH (19:00)
== END 2022-06-30 14:44 | disposition home or self-care (01) ==
LOC: ED 02:34 → MED SURG 04:47
PROVIDERS: ADMIT Internal Medicine; ATTEND Family Medicine
DX: J44.1 Chronic obstructive pulmonary disease with (acute) exacerbation (principal); R00.0 Tachycardia, unspecified; Z72.0 Tobacco use; Z20.828 Contact with and (suspected) exposure to other viral communicable diseases; Z79.899 Other long term (current) drug therapy
CPT/HCPCS: 0241U; 36000; 36415; 71045; 80053; 81015; 83880; 85025; 87040; 93005; 93041; 94640; 94760; 96365; 99285; G0378; J0456; J0696; A9270-GY